=== PATIENT | female | born 1940 | race Caucasian/White ===

== ENCOUNTER 2019-12-12 14:15 | Emergency (ER) | payer MEDICARE ==
[~2019-12-12] VITALS: Ht 162.6 cm; Wt 63.5 kg
[2019-12-12] MEDS ORDERED: ATENOLOL 25 MG25 M1 PO (14:25)
[2019-12-12] MEDS ORDERED: LIPITOR10 MG PO (14:25)
[2019-12-12] MEDS ORDERED: METFORMIN HCL500 M3 PO (14:26)
[2019-12-12] MEDS ORDERED: OMEPRAZOLE 20 M20 M1 PO (14:26)
[2019-12-12] MEDS ORDERED: AVAPRO 150 MG150 MG PO (14:26)
[2019-12-12] MEDS ORDERED: EFFER-K 10 MEQ10 ME1 PO (14:26)
[2019-12-12] MEDS ORDERED: CHLORTHALIDONE25 MG PO (14:26)
[2019-12-12 16:06] VITALS: BP 140/74
== END 2019-12-12 16:07 | disposition home or self-care (01) ==
LOC: M.ERS 14:15
DX: S01.01XA Laceration without foreign body of scalp, initial encounter (principal); I10 Essential (primary) hypertension; E11.9 Type 2 diabetes mellitus without complications; Z85.3 Personal history of malignant neoplasm of breast; Z90.711 Acquired absence of uterus with remaining cervical stump; W18.39XA Other fall on same level, initial encounter; Y93.89 Activity, other specified; Y92.89 Other specified places as the place of occurrence of the external cause; Y99.8 Other external cause status